=== PATIENT | male | born 1975 | race African-American/Black ===

== ENCOUNTER 2024-06-22 07:49 | Emergency (ER) | payer OTHER | END 2024-06-22 09:35 | disposition home or self-care (01) | LOC: JD.ED 07:49 | DX: M54.50 Low back pain, unspecified (principal); Z79.899 Other long term (current) drug therapy | CPT/HCPCS: 72100; 72100-26; 99282; 99283 ==

== ENCOUNTER 2024-06-27 10:58 | Emergency (ER) | payer OTHER ==
[2024-06-27] MEDS: Ketorolac 10 MG Tab PO ONE (12:05)
[2024-06-27] MEDS: Acetaminophen 325 MG Tab PO ONE (13:45)
== END 2024-06-27 13:51 | disposition home or self-care (01) ==
LOC: JD.ED 10:58
DX: M54.6 Pain in thoracic spine (principal); M54.50 Low back pain, unspecified; Z79.899 Other long term (current) drug therapy; Z91.011 Allergy to milk products; Z91.048 Other nonmedicinal substance allergy status
CPT/HCPCS: 99283; A9270